=== PATIENT | female | born 1980 | race Caucasian/White ===

== ENCOUNTER → 2017-04-19 | Outpatient (CLI) | payer BC | LOC: MC.RAD 09:00 | DX: N63 Unspecified lump in breast (principal); N60.12 Diffuse cystic mastopathy of left breast ==

== ENCOUNTER → 2017-04-24 | Outpatient (CLI) | payer BC | LOC: MC.RAD 09:57 | DX: D24.2 Benign neoplasm of left breast (principal); N62 Hypertrophy of breast; R92.0 Mammographic microcalcification found on diagnostic imaging of breast ==

== ENCOUNTER → 2018-04-11 | Outpatient (CLI) | payer BC | LOC: MC.RAD 09:00 | DX: Z12.31 Encounter for screening mammogram for malignant neoplasm of breast (principal); N60.11 Diffuse cystic mastopathy of right breast; N60.12 Diffuse cystic mastopathy of left breast; Z80.3 Family history of malignant neoplasm of breast ==

== ENCOUNTER → 2018-09-02 | Outpatient (CLI) | payer BC | LOC: COL.RAD 08:13 | DX: M79.9 Soft tissue disorder, unspecified (principal); R93.89 Abnormal findings on diagnostic imaging of other specified body structures ==

== ENCOUNTER → 2019-01-29 | Outpatient (CLI) | payer BC | LOC: COL.RAD 12:58 | DX: J32.9 Chronic sinusitis, unspecified (principal) ==

== ENCOUNTER 2019-04-11 09:19 | Emergency (ER) | payer BC ==
[~2019-04-11] VITALS: Ht 160 cm; Wt 54.5 kg
[2019-04-11] MEDS ORDERED: ESTRACE2 MG PO (09:35)
[2019-04-11] MEDS ORDERED: MAXALT10 MG PO (09:35)
[2019-04-11 10:02] LABS: BASO % 0.4 % (0.0-2.0); EOS # 0.2 (0.0-0.7); EOS % 4.2 % (0-4.0); GRAN # 2.7 (1.4-6.5); GRAN % 53.7 % (42.2-75.2); HEMATOCRIT 40.7 % (37.0-47.0); HEMOGLOBIN 13.6 g/dl (12.5-16.0); LYMPH # 1.5 (1.2-3.4); MEAN CELL VOLUME 90 fl (80.0-100.0); MEAN CORPUSCULAR HEMOGLOBIN 30 pg (27.0-31.0); MEAN CORPUSCULAR HGB CONC 33 g/dl (33.0-37.0); MEAN PLATELET VOLUME 9.6 fl (7.4-10.4); MONO # 0.6 (0.1-0.6); MONO % 11.3 % (1.7-9.3); PLATELET COUNT 183 K/mm3 (130-400); REDCELL DISTRIBUTION WIDTH-CV 12.4 % (11.5-14.5)
[2019-04-11 10:09] LABS: ALANINE AMINOTRANSFERASE 12 U/L (9-52); ALBUMIN 4.3 gm/dL (3.5-5.0); ALKALINE PHOSPHATASE 64 U/L (50-136); ANION GAP 9 mmol/L (7-16); AST,SGOT 28 U/L (15-37); BILIRUBIN,TOTAL 0.6 mg/dL (0.0-1.0); BLOOD UREA NITROGEN 18 mg/dL (7-17); CALCIUM 9.7 mg/dL (8.4-10.2); CARBON DIOXIDE 28 mmol/L (22-30); CHLORIDE 104 mmol/L (98-107); CREATININE, serum 0.82 (0.52-1.25); GLUCOSE 87 mg/dL (74-106); POTASSIUM 3.7 mmol/L (3.4-5.0); SODIUM 141 mmol/L (137-145); TOTAL PROTEIN 7.7 gm/dL (6.4-8.2)
[2019-04-11 10:13] LABS: INR 0.9 (0.8-3.0); PROTHROMBIN TIME 10.6 SECONDS (9.7-12.8)
[2019-04-11 10:22] LABS: TROPONIN-I < 0.012 ng/mL (0.000-0.035)
[2019-04-11 11:34] VITALS: BP 96/56; PULSE 54; TEMP 97.9
== END 2019-04-11 11:34 | disposition home or self-care (01) ==
LOC: COL.ER 09:19
PROVIDERS: Emergency Medicine
DX: R55 Syncope and collapse (principal); Z90.710 Acquired absence of both cervix and uterus; Z90.49 Acquired absence of other specified parts of digestive tract; G43.909 Migraine, unspecified, not intractable, without status migrainosus
CPT/HCPCS: J1200; J2765; J7030

== ENCOUNTER → 2019-04-30 | Outpatient (CLI) | payer BC ==
[~2019-04-30] MED LIST: ESTRACE2 MG PO; MAXALT10 MG PO
== END ==
LOC: COL.CARD 06:15
DX: R47.1 Dysarthria and anarthria (principal); R20.0 Anesthesia of skin

== ENCOUNTER → 2019-05-06 | Outpatient (CLI) | payer BC | LOC: MC.RAD 11:11 | DX: Z12.31 Encounter for screening mammogram for malignant neoplasm of breast (principal); Z98.890 Other specified postprocedural states ==

== ENCOUNTER → 2019-06-05 | Outpatient (CLI) | payer BC | LOC: COL.PUL 08:44 | DX: R53.83 Other fatigue (principal) ==

== ENCOUNTER → 2019-06-06 | Outpatient (CLI) | payer BC | LOC: MC.RAD 08:00 | DX: R59.1 Generalized enlarged lymph nodes (principal) ==

== ENCOUNTER 2019-06-29 13:02 | Emergency (ER) | payer BC ==
[~2019-06-29] VITALS: Ht 157.5 cm; Wt 57.7 kg
[2019-06-29] MEDS ORDERED: LEXAPRO 5MG5 MG PO ×2 (13:34→13:35)
[2019-06-29] MEDS ORDERED: LAMICTAL 25MG T25 MG PO (13:34)
[2019-06-29] MEDS ORDERED: OXYCODONE H5 MG/5 ML PO (13:36)
[2019-06-29] MEDS ORDERED: NAPROSYN 2250 MG/TAB PO (13:36)
[2019-06-29] MEDS ORDERED: TYLENOL 325MG325 MG PO (13:37)
[2019-06-29 15:06] VITALS: BP 121/77; PULSE 67; TEMP 98.1
== END 2019-06-29 15:06 | disposition home or self-care (01) ==
LOC: COL.ER 13:02
DX: G89.18 Other acute postprocedural pain (principal); R11.0 Nausea; E86.0 Dehydration; G40.909 Epilepsy, unspecified, not intractable, without status epilepticus; Z90.710 Acquired absence of both cervix and uterus; Z90.89 Acquired absence of other organs
CPT/HCPCS: J2405; J7030

== ENCOUNTER 2019-06-30 19:40 | Emergency (ER) | payer BC ==
[~2019-06-30] VITALS: Ht 157.5 cm; Wt 57.3 kg
[~2019-06-30 19:40] MED LIST changes: +LAMICTAL 25MG T25 MG PO; +LEXAPRO 5MG5 MG PO; +NAPROSYN 2250 MG/TAB PO; +OXYCODONE H5 MG/5 ML PO; +TYLENOL 325MG325 MG PO
[2019-06-30 19:45] VITALS: BP 161/67; TEMP 97.8
[2019-06-30 21:08] VITALS: PULSE 69
== END 2019-06-30 21:08 | disposition home or self-care (01) ==
LOC: COL.ER 19:40
DX: J95.830 Postprocedural hemorrhage of a respiratory system organ or structure following a respiratory system procedure (principal); G40.909 Epilepsy, unspecified, not intractable, without status epilepticus
CPT/HCPCS: J2405; J3010; J7120

== ENCOUNTER → 2020-06-01 | Outpatient (CLI) | payer BC | LOC: MC.RAD 11:11 | DX: Z12.31 Encounter for screening mammogram for malignant neoplasm of breast (principal); Z98.82 Breast implant status ==

== ENCOUNTER → 2020-07-08 | Outpatient (CLI) | payer BC | LOC: MC.RAD 07:45 | DX: N63.12 Unspecified lump in the right breast, upper inner quadrant (principal); Z90.710 Acquired absence of both cervix and uterus ==

== ENCOUNTER 2020-08-19 14:59 | Emergency (ER) | payer BC ==
[~2020-08-19] VITALS: Ht 157.5 cm; Wt 54.5 kg
[2020-08-19 15:16] VITALS: TEMP 98.6
[2020-08-19] MEDS ORDERED: IBU400 MG PO (15:50)
[2020-08-19] MEDS ORDERED: INDERAL 10MG10 MG PO (15:51)
[2020-08-19] MEDS ORDERED: MAGNESIUM200 MG PO (15:51)
[2020-08-19 18:30] VITALS: BP 109/61; PULSE 70
== END 2020-08-19 18:30 | disposition home or self-care (01) ==
LOC: COL.ER 14:59
DX: G43.909 Migraine, unspecified, not intractable, without status migrainosus (principal); R56.9 Unspecified convulsions; Z88.6 Allergy status to analgesic agent; Z90.710 Acquired absence of both cervix and uterus; Z90.89 Acquired absence of other organs
CPT/HCPCS: J1200; J1885; J2765; J7030

== ENCOUNTER → 2021-02-24 | Outpatient (CLI) | payer BC ==
[~2021-02-24] MED LIST changes: +IBU400 MG PO; +INDERAL 10MG10 MG PO; +MAGNESIUM200 MG PO
== END ==
LOC: MC.RAD 08:19
DX: N63.0 Unspecified lump in unspecified breast (principal)

== ENCOUNTER → 2021-09-19 | Outpatient (CLI) | payer BC | LOC: MC.RAD 08-05 08:45 | DX: Z12.31 Encounter for screening mammogram for malignant neoplasm of breast (principal); Z98.82 Breast implant status ==

== ENCOUNTER → 2021-11-07 | Outpatient (CLI) | payer BC | LOC: ZCOL.LAB 16:59 | DX: R06.2 Wheezing (principal); R05.1 Acute cough; Z20.822 Contact with and (suspected) exposure to COVID-19 ==

== ENCOUNTER → 2021-11-09 | Outpatient (CLI) | payer BC | LOC: COL.LAB 10:40 | DX: R09.02 Hypoxemia (principal) ==

== ENCOUNTER → 2021-11-15 | Outpatient (CLI) | payer BC | LOC: COL.RAD 13:08 | DX: K21.9 Gastro-esophageal reflux disease without esophagitis (principal); K76.0 Fatty (change of) liver, not elsewhere classified; K44.9 Diaphragmatic hernia without obstruction or gangrene; R05.1 Acute cough; R06.2 Wheezing | CPT/HCPCS: Q9967 ==

== ENCOUNTER → 2021-11-21 | Outpatient (CLI) | payer BC | LOC: ZCOL.LAB 13:11 | DX: R09.81 Nasal congestion (principal); Z20.822 Contact with and (suspected) exposure to COVID-19 ==

== ENCOUNTER → 2022-08-30 | Outpatient (CLI) | payer BC | LOC: MC.RAD 13:55 | DX: N64.4 Mastodynia (principal) ==

== ENCOUNTER → 2022-12-11 | Outpatient (CLI) | payer BC | LOC: COL.RAD 10:45 | DX: R10.11 Right upper quadrant pain (principal) ==

== ENCOUNTER → 2023-02-15 | Outpatient (CLI) | payer BC | LOC: COL.RAD 07:37 | DX: R10.11 Right upper quadrant pain (principal); R10.31 Right lower quadrant pain | CPT/HCPCS: Q9967 ==

== ENCOUNTER → 2024-08-18 | Outpatient (CLI) | payer BC | LOC: COL.RAD 09:11 | DX: M79.604 Pain in right leg (principal); M79.89 Other specified soft tissue disorders ==